=== PATIENT | female | born 1945 | race Two or more races ===

== ENCOUNTER 2024-05-20 15:26 | Inpatient (IN) | payer MEDICARE, MEDICAID ==
[~2024-05-20] VITALS: Ht 152.4 cm; Wt 54.5 kg
--- NOTE | 2024-05-20 15:32 | ED.PDOC ---
Altered Mental Status HPI Comments 78Y F with PMHx HTN presents to ED for chief complaint ALOC. SNF called 911 due to pt being unresponsive. Pt's baseline is A&Ox3 but upon EMS arrival, pt was A&Ox0. With EMS, pt was hypotensive with systolic BP in the 70s. EMS provided pt with bolus and systolic BP increased to 80s. Pt was recently d/c from [facility] on 05/06/2024 with dx sepsis. Pt is bedridden. No fever present per EMS. 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 Family History Family History: Unknown Social History Smoker: Unknown Alcohol: Unknown Drugs: Unknown Lives In: [facility] Unable to Obtain due to: Altered Mental Status All Other Systems: Reviewed and Negative Physical Exam General Appearance: Moderate Distress, Thin HEENT: Normal ENT Inspection, Pharynx Normal, TMs Normal Neck: Full Range of Motion, Non-Tender, Normal, Normal Inspection Respiratory: Chest Non-Tender, Lungs Clear, No Accessory Muscle Use, No Respiratory Distress, Normal Breath Sounds Cardiovascular: No Edema, No JVD, No Murmur, No Gallop, Normal Peripheral Pulses, Regular Rate/Rhythm Breast Exam: Deferred Gastrointestinal: No Organomegaly, Non Tender, No Pulsatile Mass, Normal Bowel Sounds, Soft Genitalia: Deferred Pelvic: Deferred Rectal: Deferred Extremities: Other (Unable to follow command) Musculoskeletal : Apperance: Normal Neurologic: Disoriented Cerebellar Function: NOT DONE Reflexes: NOT DONE Skin: Dry, Normal Color, Warm Peripheral Pulses: 3+ Radial (R), 3+ Radial (L) Lymphatic: No Adenopathy Was a procedure done? Was a procedure done?: No Differential Diagnosis (ALOC) Differential Diagnosis: Encephalopathy, Sepsis, Other X-Ray, Labs, Meds, VS Vital Signs Date Time Temp Pulse Resp B/P (MAP) Pulse Ox O2 Delivery O2 Flow Rate FiO2 05/20/24 15:52 86 24 82/44 (57) 96 05/20/24 15:44 83/49 (60) 05/20/24 15:44 86 24 96 Nasal Cannula* 2 28 Lab Test 05/20/24 16:00 Range/Units White Blood Count Pending Red Blood Count Pending Hemoglobin Pending Hematocrit Pending Mean Corpuscular Volume Pending Mean Corpuscular Hemoglobin Pending Mean Corpuscular Hemoglobin Concent Pending Red Cell Distribution Width Pending Platelet Count Pending Mean Platelet Volume Pending Neutrophils (%) (Auto) Pending Lymphocytes (%) (Auto) Pending Monocytes (%) (Auto) Pending Basophils (%) (Auto) Pending Neutrophils # (Auto) Pending Lymphocytes # (Auto) Pending Monocytes # (Auto) Pending Troponin I High Sensitivity Pending Plasma/Serum Blood Alcohol Pending Current Medications Medications (Trade) Dose Ordered Sig/Armando Route Start Time Stop Time Status Last Admin Sodium Chloride 1,000 ml @ 150 mls/hr Q6H40M ONCE IV 05/20/24 15:45 05/20/24 22:24 05/20/24 15:56 Ceftriaxone Sodium 50 ml @ 100 mls/hr ONCE ONCE IV 05/20/24 15:45 05/20/24 16:14 05/20/24 15:56 Patient disoriented. Vitals stable. Possible sepsis. Establish intravenous access. Was given fluids. Sepsis from urinary tract infection. Unable to get history from the patient. Was [facility]. Reviewed her previous visit. EKG reviewed does not show any acute changes. Waiting for family. 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 Time of 1ST Reevaluation: 15:54 Reevaluation 1ST: Unchanged Patient Education/Counseling: Pt Unresponsive Family Education/Counseling: No Family Present Departure 1 Departure Time of Disposition: 15:47 Impression: Primary Impression: Metabolic encephalopathy Additional Impression: Sepsis Qualified Codes: A41.9 - Sepsis, unspecified organism Disposition: ADMITTED INPATIENT Admit to: Med Surg Condition: Guarded Critical Care Note Critical Care Time?: Yes (45 min-critical care time only) Stability Stability form required: No Heart Score Heart Score: Heart Score Response (Comments) Value History Slightly Suspicious 0 EKG Normal 0 Age >65 2 Risk Factors >3 or Hx ASHD 2 Troponin Normal limit 0 Total 4 I personally scribed for ROBBIN SCHAFER MD ([email or web address]) on 05/20/24 at 15:32. Electronically submitted by Jeane Kennedy ([email or web address]). ROBBIN SCHAFER MD May 20, 2024 15:32
[2024-05-20 15:44] VITALS: PULSE 86; RESP 24; O2SAT 96
[2024-05-20] MEDS: SODIUM CHLORIDE 0.9% 1,000 ML IV ONE ×2 (15:56→16:45)
[2024-05-20] MEDS: cefTRIAXone 1GM/50ML D5W 50 ML IV ONE (15:56)
[2024-05-20] MEDS: AZITHROMYCIN 500MG/ 250ML 250 ML IV ONE (16:45)
[2024-05-20 16:48] LABS: Urine Bacteria None Seen /hpf (None Seen)
[2024-05-20 16:59] LABS: Urine Blood 2+ /uL (Negative); Urine Clarity Ex.Turbid (Clear); Urine Color Light-Orange (Yellow); Urine Protein, UAD 2+ (Negative); Urine Specific Gravity 1.012 (1.001-1.035); Urine Urobilinogen Normal (Negative); Urine WBC 2927 /hpf (0 - 5); Urine WBC Clumps PRESENT /hpf (None Seen)
[2024-05-20 19:00] VITALS: PULSE 108; RESP 18; TEMP 99.5
[2024-05-20] MEDS ORDERED: ALPRAZolam 0.25 MG TAB PO PRN (19:00)
[2024-05-20] MEDS ORDERED: ONDANSETRON HCL 4 MG/2 ML VIAL IV PRN (19:00)
[2024-05-20] MEDS ORDERED: BISACODYL 10 MG RECT SUPP PR PRN (19:00)
[2024-05-20] MEDS ORDERED: HYDROmorphone HCL 2 MG/ML VL/or syr IV PRN (19:00)
[2024-05-20] MEDS ORDERED: ACETAMINOPHEN 325 MG TAB PO PRN (19:00)
[2024-05-20] MEDS ORDERED: FLEET ENEMA(ADULT) 135 ML PR PRN (19:00)
[2024-05-20] MEDS ORDERED: LORazepam 0.5 MG TAB PO PRN (19:00)
--- NOTE | 2024-05-20 19:31 | DVHHP2 ---
Admitting Diagnosis: Altered mental status History of Present Illness 78Y F with PMHx HTN presents to ED for chief complaint ALOC. SNF called 911 due to pt being unresponsive. Pt's baseline is A&Ox3 but upon EMS arrival, pt was A&Ox0. With EMS, pt was hypotensive with systolic BP in the 70s. EMS provided pt with bolus and systolic BP increased to 80s. Pt was recently d/c from [place] on 05/06/2024 with dx sepsis. Pt is bedridden. No fever present per EMS. 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 No apparent distress HEENT-atraumatic normocephalic Heart-regular rate and rhythm Lungs decreased breath sounds Abdomen soft nontender nondistended Musculoskeletal-diffuse edema upper and lower extremity Neuro-eyes closed, nonresponsive to verbal, not follow commands Results Labs Test 05/20/24 17:00 05/20/24 16:47 05/20/24 16:00 Range/Units Lactic Acid Level 2.0 0.4-2.0 mmol/L Troponin I High Sensitivity 1619 *H </=34 ng/L Urine Color Light-orange Yellow Urine Clarity Ex.turbid Clear Urine pH 7.0 5.0-9.0 Urine Specific [place] 1.012 1.001-1.035 Urine Protein 2+ H Negative Urine Ketones 1+ H Negative Urine Blood 2+ H Negative /uL Urine Nitrite Negative Negative Urine Bilirubin Negative Negative Urine Urobilinogen Normal Negative mg/dL Urine Leukocyte Esterase 3+ Negative /uL Urine RBC 26 0 - 4 /hpf Urine WBC 2927 0 - 5 /hpf Urine WBC Clumps Present None Seen /hpf Urine Squamous Epithelial Cells None seen <5 /hpf Urine Bacteria None seen None Seen /hpf Urine Glucose Normal Normal mg/dL Plasma/Serum Blood Alcohol < 3.0 <10 mg/dL Primary Diagnosis Vaginal cancer mass throughout antibiotic Sepsis due to pneumonia and UTI Elevated troponin rule out ACS Comfort care Plan History is gathered from patient's daughter and two sons. 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 Patient received surgical treatments. Chemotherapy was this morning today. Due to insurance issue patient did not follow with the primary doctor Ob Gyne for two years. Patient was seen by Gyne Onc and found patient has cancer metastatic throughout the body. Patient was deemed not a candidate for chemotherapy or surgical t herapy. Patient's condition has been deteriorating and was recently hospitalized for two months. Due to patient worsening condition patient has advanced directive was DNR and family agrees DNR no surgical intervention, no aggressive with the patient. Family wants comfort care at this time Start comfort care per protocol Social consult for comfort care at halfway. DNR code status Plan discussed with: Patient Date of Service: May 20, 2024 Billing Provider: COREY SHANE MD Common Visit Codes: 77430-GAMSSUR INP/OBS CARE (HIGH) COREY SHANE MD May 20, 2024 19:31
--- NOTE | 2024-05-20 19:55 | DVH ---
CLINICAL HISTORY: ALTERED TECHNIQUE: Helical imaging carried out from skull base to vertex without intravenous contrast. This e xam was performed according to our departmental dose optimization program. Up-to-date CT equipment an d radiation dose reduction techniques are utilized as appropriate. CTDIVol: [CTDIvol] mGy DLP: 975.23 mGy-cm WID: COMPARISON: None FINDINGS: Generalized cerebral volume loss with concordant prominence of the subarachnoid spaces and ventricles . There is mild patchy low attenuation in the cerebral white matter consistent with nonspecific white matter disease. Incidental bilateral basal ganglia calcifications. Intracranial internal carotid an d vertebral artery calcifications. There is no midline shift or mass effect. The shultz white matter interfaces are maintained. The basal cisterns are patent. There is no evidence of acute intracranial hemorrhage or extra-axial fluid shameka ection. The mastoid air cells and visualized paranasal sinuses are well-aerated. IMPRESSION: 1. No acute intracranial abnormality. 2. Generalized cerebral volume loss and mild chronic microvascular ischemic change.
[2024-05-20] MEDS: MORPHINE SULFATE INJ 2 MG/ml SYRG IV PRN (20:52)
[2024-05-20] MEDS: LORazepam 2MG/ML-1ML VIAL IV PRN (20:53)
[2024-05-20] MEDS: DOCUSATE SOD 100 MG CAP PO SCH (22:00)
[2024-05-21 07:20] VITALS: BP 0/0; PULSE 0; RESP 0; O2SAT 0
--- NOTE | 2024-05-21 14:10 | ECG ---
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
--- NOTE | 2024-05-21 22:51 | DVHDSRES ---
Discharge Summary Date of Admission Resident Creating Document: MIRANDA ANDREWS RESIDENT May 20, 2024 at 18:57 Date of Discharge: May 21, 2024 Labs/Diagnostic Data: Laboratory Results Test 05/20/24 17:00 05/20/24 16:47 05/20/24 16:00 Lactic Acid Level 2.0 mmol/L (0.4-2.0) Troponin I High Sensitivity 1619 ng/L (</=34) Urine Color Light-orange (Yellow) Urine Clarity Ex.turbid (Clear) Urine pH 7.0 (5.0-9.0) Urine Specific [place] 1.012 (1.001-1.035) Urine Protein 2+ (Negative) Urine Ketones 1+ (Negative) Urine Blood 2+ /uL (Negative) Urine Nitrite Negative (Negative) Urine Bilirubin Negative (Negative) Urine Urobilinogen Normal mg/dL (Negative) Urine Leukocyte Esterase 3+ /uL (Negative) Urine RBC 26 /hpf (0 - 4) Urine WBC 2927 /hpf (0 - 5) Urine WBC Clumps Present /hpf (None Seen) Urine Squamous Epithelial Cells None seen /hpf (<5) Urine Bacteria None seen /hpf (None Seen) Urine Glucose Normal mg/dL (Normal) Plasma/Serum Blood Alcohol < 3.0 mg/dL (<10) Brief Hx & Hospital Course: 78 year old female patient transferred from SNF due to unresponsiveness. She was hypotensive with systolic BP in the 70s. Hx of vaginal CA with wide spread metastases. Code status was DNR. Patient before my assessment and evaluation. Condition at Discharge: Undetermined Final Diagnosis/Problems List Patient due to Sepsis and NSTEMI I vs II secondary to vaginal CA with wide spread mets Discharge Disposition: at Hospital Discharge Statement: "Patient was advised to return to the ER or call 911 if any headaches, dizziness, shortness of breath, chest pain, abdominal pain, bleeding, fevers, or worsening of medical condition. Patient was counseled about treatment plan, medications, possible side effects, patientverbalized understanding. All questions were answered to the best of my ability. This discharge took greater then 30 minutes in planning, reviewing documentation, counseling the patient, and discussing with other team members." ASSESSMENT ASSESSMENT Assessment Date of Service: May 21, 2024 Billing Provider: MARTHA WHATLEY MD Common Visit Codes: 11904-HSF/OBS DISCH DAY <30MIN MIRANDA ANDREWS RESIDENT May 21, 2024 22:51 MARTHA WHATLEY MD May 22, 2024 09:13
== END 2024-05-21 07:24 | DRG 871 ==
LOC: EDBD 15:26 → ER 15:45 → OVERFLOW 18:57
PROVIDERS: ADMIT Internal Medicine; ATTEND Internal Medicine
DX: A41.9 Sepsis, unspecified organism (principal); G93.41 Metabolic encephalopathy; I21.A1 Myocardial infarction type 2; R65.21 Severe sepsis with septic shock; J15.69 Pneumonia due to other Gram-negative bacteria; J15.9 Unspecified bacterial pneumonia; J96.01 Acute respiratory failure with hypoxia; N39.0 Urinary tract infection, site not specified; C52 Malignant neoplasm of vagina; Z66 Do not resuscitate; I10 Essential (primary) hypertension; Z51.5 Encounter for palliative care; Z74.01 Bed confinement status
CPT/HCPCS: 36415; 70450; 80320; 81001; 83605; 84484; 87040; 87077; 87086; 87088; 87186; 93005; 96365; 96367; 99291; G0378